=== PATIENT | female | born 1990 | race Caucasian/White ===

== ENCOUNTER 2021-08-11 00:11 | Observation (INO) | payer OTHER ==
[2021-08-11] MEDS ORDERED: HYDROmorphone 0.5 MG/0.5 ML SYRINGE IVP STA (00:53)
[2021-08-11] MEDS ORDERED: KETOROLAC 15 MG/ML 1 ML VIAL IVP STA (00:53)
[2021-08-11] MEDS ORDERED: SODIUM CHLORIDE 0.9% 1,000 ML IV STA (00:53)
[2021-08-11 01:20] LABS: Basophils # (A) 0.1 k/uL (0-0.2); Basophils % (A) 0 %; Eosinophils # (A) 0.2 k/uL (0-0.7); Eosinophils % (A) 1 %; HCT 42.3 % (34.0-46.0); HGB 14.7 gm/dL (11.4-16.0); Lymphocytes # (A) 1.4 k/uL (1.0-4.8); Lymphocytes % (A) 10 %; MCH 31.2 pg (25.0-35.0); MCHC 34.8 g/dL (31.0-37.0); MCV 89.5 fL (80.0-100.0); Mean Platelet Volume 7.2; Monocytes # (A) 0.5 k/uL (0-1.0); Monocytes % (A) 4 %; Neutrophils # (A) 12.2 k/uL (1.3-7.7); Neutrophils % (A) 84 %; Platelet Count 307 k/uL (150-450); RBC 4.72 m/uL (3.80-5.40); RDW 15.7 % (11.5-15.5); WBC 14.6 k/uL (3.8-10.6)
--- NOTE | 2021-08-11 01:24 | US ---
EXAMINATION TYPE: US abdomen limited DATE OF EXAM: 08/11/2021 COMPARISON: NONE CLINICAL HISTORY: RUQ pain. EXAM MEASUREMENTS: Liver Length: 14.1 cm Gallbladder Wall: 0.6 cm CBD: 0.7 cm Right Kidney: 11.9 x 4.2 x 6.4 cm Pancreas: wnl Liver: wnl Gallbladder: large stone with shadowing, did not move with patient positioning. Thickened wall. Evidence for sonographic Haas's sign: Yes CBD: measures 0.7 cm Right Kidney: No hydronephrosis or masses seen IMPRESSION: There is a very large gallstone. No dilated ducts. No focal liver defect. Mild gallbladder wall thick ening could be some cholecystitis.
[2021-08-11 01:26] LABS: ALT 19 U/L (4-34); AST 24 U/L (14-36); African American GFR (CKD) >90 (>60 ml/min/1.73 sqM); Albumin 4.1 g/dL (3.5-5.0); Alkaline Phosphatase 92 U/L (38-126); Anion Gap 8 mmol/L; Blood Urea Nitrogen 8 mg/dL (7-17); Calcium 9.6 mg/dL (8.4-10.2); Carbon Dioxide 25 mmol/L (22-30); Chloride 103 mmol/L (98-107); Glucose 138 mg/dL (74-99); Lipase 52 U/L (23-300); Non-African American GFR(CKD) >90 (>60 ml/min/1.73 sqM); Potassium 3.3 mmol/L (3.5-5.1); Sodium 136 mmol/L (137-145); Total Bilirubin 0.7 mg/dL (0.2-1.3); Total Protein 7.4 g/dL (6.3-8.2)
[2021-08-11] MEDS: ONDANSETRON 4 MG/2 ML VIAL IVP STA ×2 (01:29→12:29)
[2021-08-11 01:36] LABS: Amorphous Sediment,Urine Occasional /hpf; Appearance,Urine Turbid (Clear); Bacteria,Urine Many /hpf; Bilirubin,Urine Negative (Negative); Blood,Urine Trace (Negative); Color,Urine Yellow; Glucose,Urine (UA) Negative (Negative); Ketones,Urine Trace (Negative); Leukocyte Esterase,Urine Large (Negative); Mucus,Urine Rare /hpf; Nitrite,Urine Positive (Negative); PH, Urine 7.5 (5.0-8.0); Protein,Urine Trace (Negative); Specific Gravity,Urine 1.015 (1.001-1.035); Squamous Epithelial Cell,Urine 19 /hpf (0-4); Urobilinogen,Urine <2.0 mg/dL (<2.0); WBC,Urine 29 /hpf (0-5)
[2021-08-11] MEDS ORDERED: PIPERACILLIN-TAZOBACTAM 3.375 GM in SODIUM CHLORIDE 0.9% 100 ML IVPB STA (02:03)
[2021-08-11] MEDS ORDERED: NALOXONE 0.4 MG/ML 1 ML VIAL IV PRN (02:03)
[2021-08-11] MEDS ORDERED: HYDROmorphone 0.5 MG/0.5 ML SYRINGE IVP PRN (02:13)
[2021-08-11] MEDS ORDERED: ONDANSETRON 4 MG/2 ML VIAL IVP PRN (02:13)
--- NOTE | 2021-08-11 02:19 | ED ---
Abdominal Pain HPI - General Chief Complaint: Abdominal Pain Stated Complaint: Chest,Back,Abd Pain Time Seen by Provider: 08/11/21 00:35 Source: patient Mode of arrival: ambulatory Limitations: no limitations - History of Present Illness Initial Comments: 31-year-old female patient presents to the emergency department today for evaluation of upper abdominal pain radiating through to her back and into her chest. States symptoms started approximately 3-1/2 hours prior to arrival. States she has been nauseated and has vomited several times with this. States she has had 2 previous episodes of similar type pain for little over a month ago. She denies any fever or chills. Denies any previous abdominal surgeries other than a tubal ligation. Denies any hematuria, dysuria, urinary frequency, urinary urgency. Denies any alcohol use. States she occasionally smokes marijuana. - Related Data Allergies Allergy/AdvReac Type Severity Reaction Status Date / Time No Known Allergies Allergy Verified 08/11/21 00:17 Review of Systems ROS Statement: Those systems with pertinent positive or pertinent negative responses have been documented in the HPI. ROS Other: All systems not noted in ROS Statement are negative. Past Medical History Past Medical History: No Reported History History of Any Multi-Drug Resistant Organisms: None Reported Past Surgical History: No Surgical Hx Reported Past Psychological History: Anxiety, Bipolar, Depression Smoking Status: Current every day smoker Past Alcohol Use History: Occasional Past Drug Use History: Marijuana General Exam Limitations: no limitations General appearance: alert, in no apparent distress, other (Physical well-developed, well-nourished adult female patient in no acute distress. Vital signs upon presentation are temperature 97.4F, pulse 62, respirations 22, blood pressure 139/88, pulse ox 100% on room air.) Eye exam: Present: normal appearance, PERRL, EOMI. Absent: scleral icterus, conjunctival injection, periorbital swelling ENT exam: Present: normal exam, normal oropharynx, mucous membranes moist Respiratory exam: Present: normal lung sounds bilaterally. Absent: respiratory distress, wheezes, rales, rhonchi, stridor Cardiovascular Exam: Present: regular rate, normal rhythm, normal heart sounds. Absent: systolic murmur, diastolic murmur, rubs, gallop, clicks GI/Abdominal exam: Present: soft, tenderness (Midepigastric, right upper quadrant.), normal bowel sounds, other (Positive Haas sign). Absent: distended, guarding, rebound, rigid Neurological exam: Present: alert, oriented X3, CN II-XII intact Psychiatric exam: Present: normal affect, normal mood Skin exam: Present: warm, dry, intact, normal color. Absent: rash Course Vital Signs 08/11/21 08/11/21 00:12 01:35 Temperature 97.4 F L Pulse Rate 62 72 Respiratory 22 18 Rate Blood Pressure 139/88 117/77 O2 Sat by Pulse 100 99 Oximetry Medical Decision Making - Medical Decision Making 31-year-old female patient presenting to the emergency department today for evaluation of upper abdominal pain and vomiting. Physical examination did reveal midepigastric right upper quadrant tenderness. Labs reviewed and revealed white blood cell count of 14.6 with neutrophils at 12.2. His potassium is low at 3.3, glucose 138. Urinalysis showed a turbid appearance with positive nitrite, large leukocyte esterase, 29 white blood cells, many bacteria. Case was discussed with on-call surgeon Dr. Bauer who recommends IV antibiotics and admission. She is to be NPO. I discussed findings and results with the patient. She is agreeable to this plan. Case is discussed with my attending Dr. Carrillo. - Lab Data Result diagrams: 08/11/21 01:07 08/11/21 01:07 Lab Results 08/11/21 08/11/21 08/11/21 Range/Units 01:07 01:07 01:07 WBC 14.6 H (3.8-10.6) k/uL RBC 4.72 (3.80-5.40) m/uL Hgb 14.7 (11.4-16.0) gm/dL Hct 42.3 (34.0-46.0) % MCV 89.5 (80.0-100.0) fL MCH 31.2 (25.0-35.0) pg MCHC 34.8 (31.0-37.0) g/dL RDW 15.7 H (11.5-15.5) % Plt Count 307 (150-450) k/uL MPV 7.2 Neutrophils % 84 % Lymphocytes % 10 % Monocytes % 4 % Eosinophils % 1 % Basophils % 0 % Neutrophils # 12.2 H (1.3-7.7) k/uL Lymphocytes # 1.4 (1.0-4.8) k/uL Monocytes # 0.5 (0-1.0) k/uL Eosinophils # 0.2 (0-0.7) k/uL Basophils # 0.1 (0-0.2) k/uL Sodium 136 L (137-145) mmol/L Potassium 3.3 L (3.5-5.1) mmol/L Chloride 103 (98-107) mmol/L Carbon Dioxide 25 (22-30) mmol/L Anion Gap 8 mmol/L BUN 8 (7-17) mg/dL Creatinine 0.76 (0.52-1.04) mg/dL Est GFR (CKD-EPI)AfAm >90 (>60 ml/min/1.73 sqM) Est GFR (CKD-EPI)NonAf >90 (>60 ml/min/1.73 sqM) Glucose 138 H (74-99) mg/dL Plasma Lactic Acid Matthew (0.7-2.0) mmol/L Calcium 9.6 (8.4-10.2) mg/dL Total Bilirubin 0.7 (0.2-1.3) mg/dL AST 24 (14-36) U/L ALT 19 (4-34) U/L Alkaline Phosphatase 92 (38-126) U/L Total Protein 7.4 (6.3-8.2) g/dL Albumin 4.1 (3.5-5.0) g/dL Lipase 52 (23-300) U/L Urine Color Yellow Urine Appearance Turbid H (Clear) Urine pH 7.5 (5.0-8.0) Ur Specific Bracey 1.015 (1.001-1.035) Urine Protein Trace H (Negative) Urine Glucose (UA) Negative (Negative) Urine Ketones Trace H (Negative) Urine Blood Trace H (Negative) Urine Nitrite Positive H (Negative) Urine Bilirubin Negative (Negative) Urine Urobilinogen <2.0 (<2.0) mg/dL Ur Leukocyte Esterase Large H (Negative) Urine WBC 29 H (0-5) /hpf Ur Squamous Epith Cells 19 H (0-4) /hpf Amorphous Sediment Occasional H (None) /hpf Urine Bacteria Many H (None) /hpf Urine Mucus Rare H (None) /hpf 08/11/21 Range/Units 01:07 WBC (3.8-10.6) k/uL RBC (3.80-5.40) m/uL Hgb (11.4-16.0) gm/dL Hct (34.0-46.0) % MCV (80.0-100.0) fL MCH (25.0-35.0) pg MCHC (31.0-37.0) g/dL RDW (11.5-15.5) % Plt Count (150-450) k/uL MPV Neutrophils % % Lymphocytes % % Monocytes % % Eosinophils % % Basophils % % Neutrophils # (1.3-7.7) k/uL Lymphocytes # (1.0-4.8) k/uL Monocytes # (0-1.0) k/uL Eosinophils # (0-0.7) k/uL Basophils # (0-0.2) k/uL Sodium (137-145) mmol/L Potassium (3.5-5.1) mmol/L Chloride (98-107) mmol/L Carbon Dioxide (22-30) mmol/L Anion Gap mmol/L BUN (7-17) mg/dL Creatinine (0.52-1.04) mg/dL Est GFR (CKD-EPI)AfAm (>60 ml/min/1.73 sqM) Est GFR (CKD-EPI)NonAf (>60 ml/min/1.73 sqM) Glucose (74-99) mg/dL Plasma Lactic Acid Matthew 1.4 (0.7-2.0) mmol/L Calcium (8.4-10.2) mg/dL Total Bilirubin (0.2-1.3) mg/dL AST (14-36) U/L ALT (4-34) U/L Alkaline Phosphatase (38-126) U/L Total Protein (6.3-8.2) g/dL Albumin (3.5-5.0) g/dL Lipase (23-300) U/L Urine Color Urine Appearance (Clear) Urine pH (5.0-8.0) Ur Specific Bracey (1.001-1.035) Urine Protein (Negative) Urine Glucose (UA) (Negative) Urine Ketones (Negative) Urine Blood (Negative) Urine Nitrite (Negative) Urine Bilirubin (Negative) Urine Urobilinogen (<2.0) mg/dL Ur Leukocyte Esterase (Negative) Urine WBC (0-5) /hpf Ur Squamous Epith Cells (0-4) /hpf Amorphous Sediment (None) /hpf Urine Bacteria (None) /hpf Urine Mucus (None) /hpf - Radiology Data Radiology results: report reviewed, image reviewed Ultrasound of the right upper quadrant abdomen is obtained. Report was reviewed in its entirety. Impression by Dr. Pandya shows very large gallstone. No dilated ducts. No focal liver defect. Mild gallbladder wall thickening could be some cholecystitis. Disposition Clinical Impression: Cholecystitis, UTI (urinary tract infection) Disposition: ADMITTED IP TO THIS HOSP Condition: Serious Decision to Admit Reason: Admit from EC Decision Date: 08/11/21 Decision Time: 02:19
[2021-08-11] MEDS ORDERED: POTASSIUM CHLORIDE ER 20 MEQ TAB.ER PO STA (03:07)
[2021-08-11] MEDS: SODIUM CHLORIDE 0.9% 1,000 ML IV SCH ×3 (03:17→22:19)
--- NOTE | 2021-08-11 09:26 | P.GSHP ---
<Heather Salmeron - Last Filed: 08/11/21 09:20> History of Present Illness H&P Date: 08/11/21 CHIEF COMPLAINT: Abdominal pain HISTORY OF PRESENT ILLNESS: This is a 31-year-old female who presented to the hospital with complaints of abdominal pain in the epigastric and right upper quadrant pain that started around 9 PM last night. Patient reports eating meat loaf and buttered noodles for dinner last night. And had developed pain in the epigastric and right upper quadrant area that radiated to the back. She was having nausea and vomiting. She initially thought they were gas pains but were not was unable to relieve them. The pain became very severe and she presented to the ER for further evaluation. She did have similar symptoms about a month ago after eating pizza. Denies having any workup done at that time. Her abdominal ultrasound did show a large gallstone and mild gallbladder wall thickening. She did have elevated white count of 14.6. She is on IV Zosyn. And is scheduled for laparoscopic cholecystectomy later today. Past surgical history includes tubal ligation. PAST MEDICAL HISTORY: Anxiety, bipolar and depression PAST SURGICAL HISTORY: Tubal ligation MEDICATIONS: See list. ALLERGIES: See list. SOCIAL HISTORY: No illicit drug use. Every day smoker. Occasional alcohol use. REVIEW OF SYSTEMS: CONSTITUTIONAL: Denies fever or chills. HEENT: Denies blurred vision, vision changes, or eye pain. Denies hemoptysis CARDIOVASCULAR: Denies chest pain or pressure. RESPIRATORY: No shortness of breath. GASTROINTESTINAL: See HPI for pertinent findings HEMATOLOGIC: Denies bleeding disorders. GENITOURINARY: Denies any blood in urine or increased urinary frequency. SKIN: Denies pruitis. Denies rash. PHYSICAL EXAM: VITAL SIGNS: Reviewed GENERAL: Well-developed in no acute distress. HEENT: No sclera icterus. Extraocular movements grossly intact. Moist buccal mucosa. Head is atraumatic, normocephalic. No nasal drainage. ABDOMEN: Soft. Nondistended. Right upper quadrant tenderness with palpation NEUROLOGIC: Alert and oriented. Cranial nerves II through XII grossly intact. LABORATORY DATA: WBC is 14.6 hemoglobin 14.7 platelets 307 sodium 136 potassium 3.3 BUN 8 cr eatinine 0.76 lactic acid 1.4 LFTs normal Lipase normal Urine not detected COVID-19 not detected Urinalysis likely contaminated specimen with a large squamous epithelial cells IMAGING: Abdominal ultrasound shows a very large gallstone. No dilated ducts. No focal liver defect. Mild gallbladder wall thickening could be some cholecystitis. Haas sign positive. ASSESSMENT: 1. Acute cholecystitis 2. Hypokalemia PLAN: -Patient scheduled for laparoscopic, possible open cholecystectomy today with Dr. Bauer -Patient's potassium has been replaced. Recheck potassium has been ordered -Continue IV antibiotics -Continue IV fluids -Continue pain medication as needed -Keep patient nothing by mouth Physician Living Supervisor note has been reviewed by physician. Signing provider agrees with the documented findings, assessment, and plan of care. Past Medical History Past Medical History: Asthma History of Any Multi-Drug Resistant Organisms: None Reported Past Surgical History: Tubal Ligation Past Anesthesia/Blood Transfusion Reactions: No Reported Reaction Past Psychological History: ADD/ADHD, Anxiety, Bipolar, Depression Smoking Status: Current every day smoker Past Alcohol Use History: Occasional Past Drug Use History: Marijuana Medications and Allergies Home Medications Medication Instructions Recorded Confirmed Type Calcium Carbonate [Tums] 1,000 mg PO TID PRN 08/11/21 08/11/21 History Allergies Allergy/AdvReac Type Severity Reaction Status Date / Time cephalexin [From Keflex] AdvReac Nausea & Verified 08/11/21 06:56 Vomiting Surgical - Exam Vital Signs Temp Pulse Resp BP Pulse Ox 97.4 F L 62 22 139/88 100 08/11/21 00:12 08/11/21 00:12 08/11/21 00:12 08/11/21 00:12 08/11/21 00:12 Results - Labs 08/11/21 01:07 08/11/21 01:07 Abnormal Lab Results - Last 24 Hours (Table) 08/11/21 08/11/21 08/11/21 Range/Units 01:07 01:07 01:07 WBC 14.6 H (3.8-10.6) k/uL RDW 15.7 H (11.5-15.5) % Neutrophils # 12.2 H (1.3-7.7) k/uL Sodium 136 L (137-145) mmol/L Potassium 3.3 L (3.5-5.1) mmol/L Glucose 138 H (74-99) mg/dL Urine Appearance Turbid H (Clear) Urine Protein Trace H (Negative) Urine Ketones Trace H (Negative) Urine Blood Trace H (Negative) Urine Nitrite Positive H (Negative) Ur Leukocyte Esterase Large H (Negative) Urine WBC 29 H (0-5) /hpf Ur Squamous Epith Cells 19 H (0-4) /hpf Amorphous Sediment Occasional H (None) /hpf Urine Bacteria Many H (None) /hpf Urine Mucus Rare H (None) /hpf Diabetes panel 08/11/21 Range/Units 01:07 Sodium 136 L (137-145) mmol/L Potassium 3.3 L (3.5-5.1) mmol/L Chloride 103 (98-107) mmol/L Carbon Dioxide 25 (22-30) mmol/L BUN 8 (7-17) mg/dL Creatinine 0.76 (0.52-1.04) mg/dL Glucose 138 H (74-99) mg/dL Calcium 9.6 (8.4-10.2) mg/dL AST 24 (14-36) U/L ALT 19 (4-34) U/L Alkaline Phosphatase 92 (38-126) U/L Total Protein 7.4 (6.3-8.2) g/dL Albumin 4.1 (3.5-5.0) g/dL Calcium panel 08/11/21 Range/Units 01:07 Calcium 9.6 (8.4-10.2) mg/dL Albumin 4.1 (3.5-5.0) g/dL Pituitary panel 08/11/21 Range/Units 01:07 Sodium 136 L (137-145) mmol/L Potassium 3.3 L (3.5-5.1) mmol/L Chloride 103 (98-107) mmol/L Carbon Dioxide 25 (22-30) mmol/L BUN 8 (7-17) mg/dL Creatinine 0.76 (0.52-1.04) mg/dL Glucose 138 H (74-99) mg/dL Calcium 9.6 (8.4-10.2) mg/dL Adrenal panel 08/11/21 Range/Units 01:07 Sodium 136 L (137-145) mmol/L Potassium 3.3 L (3.5-5.1) mmol/L Chloride 103 (98-107) mmol/L Carbon Dioxide 25 (22-30) mmol/L BUN 8 (7-17) mg/dL Creatinine 0.76 (0.52-1.04) mg/dL Glucose 138 H (74-99) mg/dL Calcium 9.6 (8.4-10.2) mg/dL Total Bilirubin 0.7 (0.2-1.3) mg/dL AST 24 (14-36) U/L ALT 19 (4-34) U/L Alkaline Phosphatase 92 (38-126) U/L Total Protein 7.4 (6.3-8.2) g/dL Albumin 4.1 (3.5-5.0) g/dL <Eliu Bauer - Last Filed: 08/11/21 11:45> History of Present Illness As above. History physical exam and diagnostic suggesting acute cholecystitis. Liver enzymes are normal. We'll proceed with laparoscopic, possible open cholecystectomy at this time. Risks of bleeding, infection, bile leak, bile duct injury, retained common bile duct stone, trocar injury, conversion to an open procedure, hernia, anesthesia related complications were reviewed. The patient understands and wishes to proceed. Surgical - Exam Vital Signs Temp Pulse Resp BP Pulse Ox 97.4 F L 62 22 139/88 100 08/11/21 00:12 08/11/21 00:12 08/11/21 00:12 08/11/21 00:12 08/11/21 00:12 Results - Labs 08/11/21 09:03 08/11/21 09:03 Abnormal Lab Results - Last 24 Hours (Table) 08/11/21 08/11/21 08/11/21 Range/Units 01:07 01:07 01:07 WBC 14.6 H (3.8-10.6) k/uL RDW 15.7 H (11.5-15.5) % Neutrophils # 12.2 H (1.3-7.7) k/uL Sodium 136 L (137-145) mmol/L Potassium 3.3 L (3.5-5.1) mmol/L Chloride (98-107) mmol/L BUN (7-17) mg/dL Glucose 138 H (74-99) mg/dL Albumin (3.5-5.0) g/dL Urine Appearance Turbid H (Clear) Urine Protein Trace H (Negative) Urine Ketones Trace H (Negative) Urine Blood Trace H (Negative) Urine Nitrite Positive H (Negative) Ur Leukocyte Esterase Large H (Negative) Urine WBC 29 H (0-5) /hpf Ur Squamous Epith Cells 19 H (0-4) /hpf Amorphous Sediment Occasional H (None) /hpf Urine Bacteria Many H (None) /hpf Urine Mucus Rare H (None) /hpf 08/11/21 Range/Units 09:03 WBC (3.8-10.6) k/uL RDW (11.5-15.5) % Neutrophils # (1.3-7.7) k/uL Sodium (137-145) mmol/L Potassium (3.5-5.1) mmol/L Chloride 109 H (98-107) mmol/L BUN 6 L (7-17) mg/dL Glucose (74-99) mg/dL Albumin 3.4 L (3.5-5.0) g/dL Urine Appearance (Clear) Urine Protein (Negative) Urine Ketones (Negative) Urine Blood (Negative) Urine Nitrite (Negative) Ur Leukocyte Esterase (Negative) Urine WBC (0-5) /hpf Ur Squamous Epith Cells (0-4) /hpf Amorphous Sediment (None) /hpf Urine Bacteria (None) /hpf Urine Mucus (None) /hpf Diabetes panel 08/11/21 08/11/21 Range/Units 01:07 09:03 Sodium 136 L 140 (137-145) mmol/L Potassium 3.3 L 4.1 (3.5-5.1) mmol/L Chloride 103 109 H (98-107) mmol/L Carbon Dioxide 25 25 (22-30) mmol/L BUN 8 6 L (7-17) mg/dL Creatinine 0.76 0.67 (0.52-1.04) mg/dL Glucose 138 H 91 (74-99) mg/dL Calcium 9.6 8.7 (8.4-10.2) mg/dL AST 24 21 (14-36) U/L ALT 19 16 (4-34) U/L Alkaline Phosphatase 92 69 (38-126) U/L Total Protein 7.4 6.3 (6.3-8.2) g/dL Albumin 4.1 3.4 L (3.5-5.0) g/dL Calcium panel 08/11/21 08/11/21 Range/Units 01:07 09:03 Calcium 9.6 8.7 (8.4-10.2) mg/dL Albumin 4.1 3.4 L (3.5-5.0) g/dL Pituitary panel 08/11/21 08/11/21 Range/Units 01:07 09:03 Sodium 136 L 140 (137-145) mmol/L Potassium 3.3 L 4.1 (3.5-5.1) mmol/L Chloride 103 109 H (98-107) mmol/L Carbon Dioxide 25 25 (22-30) mmol/L BUN 8 6 L (7-17) mg/dL Creatinine 0.76 0.67 (0.52-1.04) mg/dL Glucose 138 H 91 (74-99) mg/dL Calcium 9.6 8.7 (8.4-10.2) mg/dL Adrenal panel 08/11/21 08/11/21 Range/Units 01:07 09:03 Sodium 136 L 140 (137-145) mmol/L Potassium 3.3 L 4.1 (3.5-5.1) mmol/L Chloride 103 109 H (98-107) mmol/L Carbon Dioxide 25 25 (22-30) mmol/L BUN 8 6 L (7-17) mg/dL Creatinine 0.76 0.67 (0.52-1.04) mg/dL Glucose 138 H 91 (74-99) mg/dL Calcium 9.6 8.7 (8.4-10.2) mg/dL Total Bilirubin 0.7 0.9 (0.2-1.3) mg/dL AST 24 21 (14-36) U/L ALT 19 16 (4-34) U/L Alkaline Phosphatase 92 69 (38-126) U/L Total Protein 7.4 6.3 (6.3-8.2) g/dL Albumin 4.1 3.4 L (3.5-5.0) g/dL
[2021-08-11 09:53] LABS: Basophils % (A) 0 %; Eosinophils # (A) 0.2 k/uL (0-0.7); Eosinophils % (A) 2 %; HCT 38.9 % (34.0-46.0); HGB 12.9 gm/dL (11.4-16.0); Lymphocytes # (A) 2.2 k/uL (1.0-4.8); Lymphocytes % (A) 21 %; MCHC 33.2 g/dL (31.0-37.0); MCV 93.4 fL (80.0-100.0); Mean Platelet Volume 7.4; Monocytes # (A) 0.5 k/uL (0-1.0); Monocytes % (A) 5 %; Neutrophils # (A) 7.5 k/uL (1.3-7.7); Neutrophils % (A) 71 %; Platelet Count 281 k/uL (150-450); RBC 4.17 m/uL (3.80-5.40); RDW 15.1 % (11.5-15.5); WBC 10.6 k/uL (3.8-10.6)
[2021-08-11 10:13] LABS: ALT 16 U/L (4-34); AST 21 U/L (14-36); African American GFR (CKD) >90 (>60 ml/min/1.73 sqM); Albumin 3.4 g/dL (3.5-5.0); Alkaline Phosphatase 69 U/L (38-126); Anion Gap 6 mmol/L; Blood Urea Nitrogen 6 mg/dL (7-17); Calcium 8.7 mg/dL (8.4-10.2); Carbon Dioxide 25 mmol/L (22-30); Chloride 109 mmol/L (98-107); Glucose 91 mg/dL (74-99); Non-African American GFR(CKD) >90 (>60 ml/min/1.73 sqM); Potassium 4.1 mmol/L (3.5-5.1); Sodium 140 mmol/L (137-145); Total Bilirubin 0.9 mg/dL (0.2-1.3); Total Protein 6.3 g/dL (6.3-8.2)
[2021-08-11] MEDS: PIPERACILLIN-TAZOBACTAM 3.375 GM in SODIUM CHLORIDE 0.9% 100 ML IVPB SCH ×2 (10:25→18:09)
[2021-08-11] MEDS ORDERED: IV FLUID CONTINUATION 1,000 ML IV ONE (12:08)
[2021-08-11] MEDS ORDERED: SUCCINYLCHOLINE CHLORIDE 100 MG/5 ML SYR IV ONE (13:17)
[2021-08-11] MEDS ORDERED: GLYCOPYRROLATE 0.2 MG/ML 2 ML VIAL ONE (13:17)
[2021-08-11] MEDS ORDERED: MIDAZOLAM 2 MG/2 ML VIAL ONE (13:17)
[2021-08-11] MEDS ORDERED: HYDROmorphone (PF) 1 MG/ML ONE (13:17)
[2021-08-11] MEDS ORDERED: NEOSTIGMINE 1 MG/ML 10 ML VIAL ONE (13:17)
[2021-08-11] MEDS ORDERED: LIDOCAINE 1% INJ 10MG/ML (20 ML MDV) ONE (13:17)
[2021-08-11] MEDS ORDERED: ROCURONIUM 10 MG/ML (5 ML VIAL) IV ONE (13:17)
[2021-08-11] MEDS ORDERED: PROPOFOL 10 MG/ML 20 ML VIAL IV ONE (13:17)
[2021-08-11] MEDS ORDERED: fentaNYL (PF) 50 MCG/ML 2 ML AMP ONE (13:17)
[2021-08-11] MEDS ORDERED: BUPIVACAIN-EPI 0.25%-1:200,000 30 ML VIAL SQ ONE ×2 (13:37)
[2021-08-11] MEDS ORDERED: LACTATED RINGERS 1,000 ML IV ONE ×2 (13:52)
--- NOTE | 2021-08-11 14:28 | P.OP ---
Date of Procedure: 08/11/21 Procedure(s) Performed: PREOPERATIVE DIAGNOSIS: Acute calculus cholecystitis POSTOPERATIVE DIAGNOSIS: Same PROCEDURE: Laparoscopic cholecystectomy SURGEON: Juancarlos EBL: 20 mL ANESTHESIA: Gen. COMPLICATIONS: None OPERATIVE PROCEDURE: The patient was brought and placed on the operating room table in the supine position. The patient was placed under general anesthesia at that time. The abdomen was prepped and draped in the usual sterile fashion. A small vertical infraumbilical incision was made. The fascia was grasped with the Barney forceps. The fascia was retracted anteriorly. The Veress needle was advanced into the peritoneal cavity. The saline drop test was normal. Insufflation took place up to 15 mmHg. A 5 mm optical trocar was advanced and the peritoneal cavity. 2 additional 5 mm trochars were placed in the right upper quadrant under direct visualization. A 12 mm trocar was advanced into the epigastric incision site. The gallbladder was retracted superiorly and laterally. The gallbladder was acutely inflamed. There was actually a small abscess at the fundus of the gallbladder that drained pus when we initially grab the gallbladder. The peritoneum overlying the infundibulum was bluntly dissected. The patient's cystic duct was visualized. The junction between the cystic duct common and hepatic duct was identified. The critical view of safety was achieved after blunt dissection. The cystic duct was then divided after placement of 3 12 mm clips on the patient's side and one on the specimen side. The cystic artery was identified and clipped as well. A small vessel was seen along the gallbladder fossa and clipped as well. The gallbladder was then removed from the liver bed using electrocautery. The gallbladder was then removed from the epigastric trocar site with an Endo Catch bag. The gallbladder fossa was irrigated with saline. There was no evidence of any bleeding or biliary drainage seen. The fascia at the 12 millimeter site was closed using a David-Robson 0 Vicryl stitch. The trochars were then removed. The skin at all 4 sites was closed using a 4-0 Monocryl stitch. Skin glue was utilized on the incision sites. At the end of this procedure the sponge and needle counts were correct. DISPOSITION: Stable to the recovery room
[2021-08-11] MEDS ORDERED: HYDROmorphone 0.5 MG/0.5 ML SYRINGE IVP ONE (15:04)
[2021-08-11] MEDS: HEPARIN SODIUM,PORCINE/PF 5,000 UNIT/0.5 ML SYRINGE SQ SCH ×2 (15:36→22:19)
[2021-08-11] MEDS: FAMOTIDINE 20 MG TAB PO SCH (20:48)
[2021-08-11] MEDS: HYDROcodone/APAP 5-325MG 1 EACH TAB PO PRN (22:19)
[2021-08-12] MEDS: HYDROcodone/APAP 5-325MG 1 EACH TAB PO PRN (03:15)
[2021-08-12] MEDS: PIPERACILLIN-TAZOBACTAM 3.375 GM in SODIUM CHLORIDE 0.9% 100 ML IVPB SCH ×2 (03:16→11:52)
[2021-08-12] MEDS: FAMOTIDINE 20 MG TAB PO SCH (08:47)
[2021-08-12] MEDS: HEPARIN SODIUM,PORCINE/PF 5,000 UNIT/0.5 ML SYRINGE SQ SCH (08:47)
[2021-08-12 09:43] VITALS: BP 150/87; PULSE 57; RESP 14; TEMP 97.9
--- NOTE | 2021-08-12 10:51 | P.DS ---
<Heather Salmeron - Last Filed: 08/12/21 10:35> Providers Expected date of discharge: 08/12/21 Hospital Course: Discharge diagnosis 1. Acute calculus cholecystitis status post laparoscopic cholecystectomy 2. Hypokalemia resolved 3. Questionable UTI on admission. Patient asymptomatic for any urinary symptoms. Doubt UTI. Urinalysis did have a large amount of squamous epithelial cells likely a contaminated urine specimen. No antibiotics needed at discharge. Urine culture pending. Hospital course This is a 31-year-old female who presented to the hospital with complaints of abdominal pain in the epigastric and right upper quadrant pain that started around 9 PM last night. Patient reports eating meat loaf and buttered noodles for dinner last night. And had developed pain in the epigastric and right upper quadrant area that radiated to the back. She was having nausea and vomiting. She initially thought they were gas pains but were not was unable to relieve them. The pain became very severe and she presented to the ER for further evaluation. She did have similar symptoms about a month ago after eating pizza. Denies having any workup done at that time. Her abdominal ultrasound did show a large gallstone and mild gallbladder wall thickening. She did have elevated white count of 14.6. She is on IV Zosyn. She is status post laparoscopic cholecystectomy for acute calculus cholecystitis. Patient tolerated surgery well. She is tolerating diet. She is having flatus. She is up and ambulating. Her white count has normalized. She is afebrile. Incision sites clean dry and intact. She is stable for discharge. Please refer to chart for any further details. Physician Learning Engineer note has been reviewed by physician. Signing provider agrees with the documented findings, assessment, and plan of care. Patient Condition at Discharge: Stable Plan - Discharge Summary Discharge Rx Participant: Yes New Discharge Prescriptions: New oxyCODONE HCL [OxyIR] 5 mg PO Q6H PRN 3 Days #6 tab PRN Reason: Breakthrough Pain Acetaminophen Tab [Tylenol Tab] 650 mg PO Q4H PRN #30 tablet PRN Reason: Pain Continue Calcium Carbonate [Tums] 1,000 mg PO TID PRN PRN Reason: Heartburn Discharge Medication List Calcium Carbonate [Tums] 1,000 mg PO TID PRN 08/11/21 [History] oxyCODONE HCL [OxyIR] 5 mg PO Q6H PRN 3 Days #6 tab 08/11/21 [Rx] Acetaminophen Tab [Tylenol Tab] 650 mg PO Q4H PRN #30 tablet 08/12/21 [Rx] Follow up Appointment(s)/Referral(s): Eliu Bauer MD [Medical Doctor] - 08/27/21 3:30 pm None,Stated [Primary Care Provider] - 1-2 days Patient Instructions/Handouts: Low Fat Diet (DC) Activity/Diet/Wound Care/Special Instructions: No driving while taking OxyIR No lifting over 10 pounds You may shower. No soaking or tub baths for 2 weeks Very light activity until you are reevaluated at your follow up appointment with your surgeon Call your Dr with any fever,chills, increased pain not controlled with pain meds. increased redness or discolored drainage from puncture sites or any concerns. Good hand washing leave glue in place to puncture sites. last received pain meds at 0315 Diet low-fat, regular, drink fluids. Discharge Disposition: HOME SELF-CARE <Eliu Bauer - Last Filed: 08/12/21 15:56> Providers Date of admission: 08/11/21 02:25 Attending physician: Eliu Bauer Primary care physician: Stated None Hospital Course: As above. Patient is doing well today. Patient may be discharged at this time. Follow-up one week.
== END 2021-08-12 12:02 | disposition home or self-care (01) ==
LOC: EC 00:11 → 6PED 02:25
PROVIDERS: ADMIT Surgery; ATTEND Surgery
DX: K80.13 Calculus of gallbladder with acute and chronic cholecystitis with obstruction (principal); E87.6 Hypokalemia; J45.909 Unspecified asthma, uncomplicated; F31.9 Bipolar disorder, unspecified; F41.9 Anxiety disorder, unspecified; F17.200 Nicotine dependence, unspecified, uncomplicated; F90.9 Attention-deficit hyperactivity disorder, unspecified type; Z20.822 Contact with and (suspected) exposure to COVID-19; Z88.1 Allergy status to other antibiotic agents; Z98.51 Tubal ligation status
CPT/HCPCS: 96374; 96375; 99285; 36415; 88304; 80053; 83605; 83690; 85025; 81001; 81025; 87040; 87086; 87077; 87186; 87635; 76705; 47562; G0378 ×2; J2543 ×2; J2250; J2710; J2405; J2001; J3010; J1170 ×2; J1885; J0330; J2704; J1644 ×2

== ENCOUNTER 2022-08-30 00:15 | Emergency (ER) | payer OTHER ==
[2022-08-30] MEDS ORDERED: SODIUM CHLORIDE 0.9% 1,000 ML IV STA (00:22)
[2022-08-30] MEDS ORDERED: HYDROmorphone 0.5 MG/0.5 ML SYRINGE IVP STA (00:22)
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
[2022-08-30 01:18] LABS: ALT 17 U/L (4-34); AST 25 U/L (14-36); African American GFR (CKD) >90 (>60 ml/min/1.73 sqM); Albumin 4.6 g/dL (3.5-5.0); Alkaline Phosphatase 95 U/L (38-126); Anion Gap 17 mmol/L; Basophils # (A) 0.1 k/uL (0-0.2); Basophils % (A) 1 %; Blood Urea Nitrogen 6 mg/dL (7-17); Calcium 8.7 mg/dL (8.4-10.2); Carbon Dioxide 13 mmol/L (22-30); Chloride 112 mmol/L (98-107); Eosinophils # (A) 0.3 k/uL (0-0.7); Eosinophils % (A) 3 %; Glucose 135 mg/dL (74-99); HCT 41.8 % (34.0-46.0); HGB 14.1 gm/dL (11.4-16.0); Lymphocytes # (A) 2.1 k/uL (1.0-4.8); Lymphocytes % (A) 18 %; MCH 29.9 pg (25.0-35.0); MCHC 33.7 g/dL (31.0-37.0); MCV 88.9 fL (80.0-100.0); Mean Platelet Volume 7.6; Monocytes # (A) 0.5 k/uL (0-1.0); Monocytes % (A) 4 %; Neutrophils # (A) 8.4 k/uL (1.3-7.7); Neutrophils % (A) 72 %; Non-African American GFR(CKD) >90 (>60 ml/min/1.73 sqM); Platelet Count 338 k/uL (150-450); Potassium 3.3 mmol/L (3.5-5.1); RDW 14.5 % (11.5-15.5); Sodium 142 mmol/L (137-145); Total Bilirubin 0.8 mg/dL (0.2-1.3); Total Protein 7.9 g/dL (6.3-8.2); WBC 11.6 k/uL (3.8-10.6)
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
[2022-08-30 01:30] LABS: Alcohol 139 mg/dL
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
--- NOTE | 2022-08-30 01:45 | XR ---
EXAMINATION TYPE: XR pelvis AP view DATE OF EXAM: 08/30/2022 COMPARISON: NONE HISTORY: Pain TECHNIQUE: Single view FINDINGS: The pelvic ring is intact. Proximal femurs and hip joints are intact. Bladder distends smoo thly without contrast. Sacroiliac joints are intact. IMPRESSION: Normal pelvis.
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
[2022-08-30 02:03] VITALS: TEMP 98.2
[2022-08-30 03:11] VITALS: BP 136/97; PULSE 103; RESP 12
== END 2022-08-30 03:11 | disposition home or self-care (01) ==
LOC: EC 00:15
DX: Z04.1 Encounter for examination and observation following transport accident (principal); J45.909 Unspecified asthma, uncomplicated; F90.9 Attention-deficit hyperactivity disorder, unspecified type; F41.9 Anxiety disorder, unspecified; F31.9 Bipolar disorder, unspecified; F17.200 Nicotine dependence, unspecified, uncomplicated; F12.90 Cannabis use, unspecified, uncomplicated; Z88.1 Allergy status to other antibiotic agents; V49.9XXA Car occupant (driver) (passenger) injured in unspecified traffic accident, initial encounter; Y92.411 Interstate highway as the place of occurrence of the external cause
CPT/HCPCS: 36415; 86900; 86901; 80053; 84484; 85025; 86850; 80320; 72170; 71045; 72125; 70450; 71260; 74177; 99285; 96374; 96361; J1170; Q9967